=== PATIENT | female | born 1975 | race Caucasian/White ===

== ENCOUNTER 2024-03-12 10:32 | Observation (INO) | payer BC ==
[2024-03-12] MEDS ORDERED: Silver Nitrate Application 1 EACH ONE (11:23)
[2024-03-12] MEDS ORDERED: Ondansetron ODT 4 MG TAB PO PRN (12:47)
[2024-03-12] MEDS ORDERED: Acetaminophen 325 MG TAB PO PRN (12:47)
[2024-03-12] MEDS: Simethicone Chewable 80 MG TAB PO PRN (15:25)
[2024-03-12 16:24] LABS: Hematocrit 34.5 % (34.9-44.5); Hemoglobin 11.3 g/dL (12.0-15.5); Mean Corpuscular HGB CONC 32.8 g/dL (32.0-36.0); Mean Corpuscular Hemoglobin 28.5 pg (27.0-33.0); Mean Corpuscular Volume 86.9 fl (81.6-98.3); Mean Platelet Volume 11.6 fl (7.4-10.4); Platelet Count 236 10x3/uL (150-450); RBC Distribution Width 13.1 % (11.5-14.5); Red Blood Cell (RBC) Count 3.97 10x6/uL (3.90-5.03); White Blood Cell (WBC) Count 8.2 10x3/uL (3.5-10.5)
[2024-03-12] MEDS: Atorvastatin Calcium 40 MG TAB PO SCH (21:34)
[2024-03-12] MEDS: Loratadine 10 MG TAB PO SCH (21:34)
[2024-03-12] MEDS: Docusate 100 MG CAP PO SCH (21:34)
[2024-03-12 22:29] LABS: Hematocrit 33.5 % (34.9-44.5); Hemoglobin 11.2 g/dL (12.0-15.5); Mean Corpuscular HGB CONC 33.4 g/dL (32.0-36.0); Mean Corpuscular Hemoglobin 28.9 pg (27.0-33.0); Mean Corpuscular Volume 86.6 fl (81.6-98.3); Mean Platelet Volume 11.5 fl (7.4-10.4); Platelet Count 219 10x3/uL (150-450); RBC Distribution Width 13.2 % (11.5-14.5); Red Blood Cell (RBC) Count 3.87 10x6/uL (3.90-5.03); White Blood Cell (WBC) Count 9.5 10x3/uL (3.5-10.5)
[2024-03-13 04:24] LABS: #Basophils 0.07 10x3/uL (0.0-0.2); #Eosinphils 0.38 10x3/uL (0.0-0.5); #Neutrophils 4.99 10x3/uL (1.5-8.4); %Basophils 0.8 % (0.0-2.0); %Eosinophils 4.3 % (0.0-6.0); %Lymphocytes 32.7 % (18.0-47.0); %Monocytes 5.6 % (0.0-10.0); %Neutrophils 56.4 % (40.0-75.0); Hematocrit 34.5 % (34.9-44.5); Hemoglobin 11.2 g/dL (12.0-15.5); Mean Corpuscular HGB CONC 32.5 g/dL (32.0-36.0); Mean Corpuscular Hemoglobin 28.4 pg (27.0-33.0); Mean Corpuscular Volume 87.3 fl (81.6-98.3); Mean Platelet Volume 11.6 fl (7.4-10.4); Platelet Count 216 10x3/uL (150-450); RBC Distribution Width 13.1 % (11.5-14.5); Red Blood Cell (RBC) Count 3.95 10x6/uL (3.90-5.03); White Blood Cell (WBC) Count 8.9 10x3/uL (3.5-10.5)
[2024-03-13] MEDS ORDERED: Atorvastatin Calcium 40 MG TAB PO SCH (09:00)
[2024-03-13 12:42] VITALS: BP 107/67; TEMP 98
== END 2024-03-13 14:50 | disposition home or self-care (01) ==
LOC: CSHPP 10:32 → INTOOBSV 10:32
PROVIDERS: ADMIT Obstetrics & Gynecology; ATTEND Obstetrics & Gynecology
DX: N99.820 Postprocedural hemorrhage of a genitourinary system organ or structure following a genitourinary system procedure (principal); R42 Dizziness and giddiness; E78.5 Hyperlipidemia, unspecified; Z90.49 Acquired absence of other specified parts of digestive tract; Z90.710 Acquired absence of both cervix and uterus; Z79.899 Other long term (current) drug therapy
CPT/HCPCS: 36415; 80048; 85025; 86850; 86900; 86901